=== PATIENT | male | born 1955 | race African-American/Black ===

== ENCOUNTER 2019-05-29 18:30 | Emergency (ER) | payer MEDICARE ==
[~2019-05-29] VITALS: Ht 177.8 cm; Wt 117.9 kg
[2019-05-29] MEDS ORDERED: TETANUS-DIPTH-ACEL PERTUSSIS 0.5ML SYRG IM ONE (20:15)
[2019-05-29] MEDS ORDERED: LIDOCAINE 1% HCL (LOCAL ANESTH.) INJ 20ML MDV IJ ONE (20:15)
[2019-05-29 20:40] VITALS: BP 144/88
== END 2019-05-29 21:22 | disposition home or self-care (01) ==
LOC: ER 18:30
DX: S61.412A Laceration without foreign body of left hand, initial encounter (principal); W54.0XXA Bitten by dog, initial encounter; Y93.89 Activity, other specified; Y92.89 Other specified places as the place of occurrence of the external cause; Y99.8 Other external cause status
CPT/HCPCS: 12001; 90471; 90715; 99283; J2001

== ENCOUNTER 2023-04-02 11:35 | Emergency (ER) | payer OTHER, MEDICAID ==
[~2023-04-02] VITALS: Ht 177.8 cm; Wt 118.2 kg
[2023-04-02 12:55] LABS: Basophils # (auto) 0.1 10 ^3/uL (0-0.2); Basophils % (auto) 1.3 % (0.0-2.0); Eosinophils # (auto) 0.1 10 ^3/uL (0-0.8); Eosinophils % (auto) 1.7 % (0.0-7.0); Hematocrit 40.5 % (41.0-53.0); Lymphocytes # (auto) 1.9 10 ^3/uL (0.4-5.4); Lymphocytes % (auto) 26.6 % (10.0-50.0); Mean Corpuscular Hemoglobin 27.4 pg (28.0-32.0); Mean Corpuscular Volume 85.4 fL (80.0-100.0); Monocytes # (auto) 0.4 10 ^3/uL (0-1.3); Monocytes % (auto) 5.8 % (0.0-12.0); Neutrophils # (auto) 4.7 10 ^3/uL (1.6-8.6); Neutrophils % (auto) 64.6 % (37.0-80.0); Nucleated Red Blood Cells % 0.2 %; Red Blood Cells 4.74 10^6/uL (4.5-5.90); Red Cell Distribution Width 13.2 % (11.8-14.3); White Blood Cell 7.3 10^3/uL (4.4-10.8)
[2023-04-02 13:14] LABS: Alanine Aminotransferase 27 U/L (7-40); Albumin 4.3 g/dL (3.2-4.8); Alkaline Phosphatase 71 U/L (46-116); Aspartate Aminotransferase 25 U/L (13-40); BUN/Creatinine Ratio 12.7 (10.0-20.0); Blood Urea Nitrogen 19 mg/dL (9-23); Chloride 104 mmol/L (98-107); Glucose 166 mg/dL (74-106); Potassium 4.1 mmol/L (3.5-5.1); Sodium 135 mmol/L (136-145)
[2023-04-02 13:15] LABS: Bilirubin, Total 0.3 mg/dL (0.2-1.0)
[2023-04-02] MEDS ORDERED: CLIN300C70 PO (14:29)
[2023-04-02] MEDS ORDERED: AMOX500T3 PO (14:29)
[2023-04-02 16:58] VITALS: BP 149/85; PULSE 68; RESP 18; TEMP 98.4; O2SAT 95
== END 2023-04-02 17:00 | disposition home or self-care (01) ==
LOC: ER 11:35
DX: L03.115 Cellulitis of right lower limb (principal); I10 Essential (primary) hypertension; E11.65 Type 2 diabetes mellitus with hyperglycemia; Z79.2 Long term (current) use of antibiotics
CPT/HCPCS: 36415; 80053; 84484; 85025; 93971

== ENCOUNTER 2025-07-02 12:53 | Emergency (ER) | payer OTHER, MEDICAID ==
[~2025-07-02] VITALS: Ht 177.8 cm; Wt 110.9 kg
[~2025-07-02 12:53] MED LIST: AMOX500T3 PO; CLIN1CAP70 PO
[2025-07-02 13:43] VITALS: TEMP 99.2
[2025-07-02 15:09] LABS: Hematocrit 42.1 % (41.0-53.0); Hemoglobin 13.6 g/dL (13.5-17.5); Mean Corpuscular Hemoglobin 27.0 pg (28.0-32.0); Mean Corpuscular Volume 83.7 fL (80.0-100.0); Nucleated Red Blood Cells % 0.0 %
--- NOTE | 2025-07-02 15:10 | ED.PDOC ---
Timothy. trauma (HPI) HPI Comments 69 y/o M, presents to the ED for CC of s/p fall injury. Patient states, he fell off a 12ft ladder landing on his buttocks x4days ago and accidently injured his right ankle. Patient has notable swelling to the right ankle and reports being unable to bear weight onto his right extremity. Patient denies loss of conscio usness, head injury, numbness, or tingling. No other symptoms or modifying factors are present at this time. Chief Complaint: Fall Injury Time Seen by MD: 15:00 Primary Care Provider: GABY Gomez notes: Nurses Notes, Medications, Allergies Allergies: Coded Allergies: NO KNOWN ALLERGIES (Unverified , 07/02/25) Home Meds Active Scripts Amoxicillin Trihydrate (Amoxicillin) 500 Mg Tab, 1 TAB PO TID for 7 Days, #21 TAB Prov:ANGELICA GUTIERREZ MD 04/02/23 Clindamycin Hcl (Clindamycin Hcl) 300 Mg Cap, 1 CAP PO TID for 7 Days, #21 CAP Prov:ANGELICA GUTIERREZ MD 04/02/23 Information Source: Patient Mode of Arrival: Wheelchair Severity: Moderate Timing: Days Duration: Since onset Prehospital treatment: None Location: (R) Ankle Location of laceration: None Mechanism: Fall Associated signs and symtoms: None Past Medical History PAST MEDICAL HISTORY: DM, HTN, Denies Surgical History: Denies all surgeries Family History Family History: Reviewed,noncontributory to illness, No family hx of Cancer, No family hx of DM, No family hx of Heart neli, No family hx of HTN, No family hx ofKidney neli, No family hx of Liver neli, No family hx of Lung neli, No family hx of Stroke Social History Smoker: Non-Smoker Alcohol: Denies ETOH Use Drugs: Denies Drug Use Lives In: Home Constitutional: denies: chills, diaphoresis, fatigue, fever, malaise, sweats, weakness, others EENTM: denies: blurred vision, double vision, ear bleeding, ear discharge, ear drainage, ear pain, ear ringing, eye pain, eye redness, hearing loss, mouth pain, mouth swelling, nasal discharge, nose bleeding, nose congestion, nose pain, photophobia, tearing, throat pain, throat swelling, voice changes, others Respiratory: denies: cough, hemoptysis, orthopnea, SOB at rest, shortness of breath, SOB with excertion, stridor, wheezing, others Cardiovascular: denies: chest pain, dizzy spells, diaphoresis, Dyspnea on exertion, edema, irregular heart beat, left arm pain, lightheadedness, palpitations, PND, syncope, others Gastrointestinal: denies: abdomen distended, abdominal pain, blood streaked bowels, constipated, diarrhea, dysphagia, difficulty swallowing, hematemesis, melena, nausea, poor appetite, poor fluid intake, rectal bleeding, rectal pain, vomiting, others Genitourinary: denies: burning, dysuria, flank pain, frequency, hematuria, incontinence, penile discharge, penile sore, pain, testicle pain, testicle swelling, urgency, others Neurological: denies: dizziness, fainting, headache, left sided numbness, left sided weakness, numbness, paresthesia, pre-existing deficit, right sided numbness, right sided weakness, seizure, speech problems, tingling, tremors, weakness, others Musculoskeletal: reports: others (right ankle swelling); denies: back pain, gout, joint pain, joint swelling, muscle pain, muscle stiffness, neck pain Integumetry: denies: bruises, change in color, change in hair/nails, dryness, laceration, lesions, lumps, rash, wounds, others Allergic/Immunocompromised: denies: Difficulty Healing, Frequent Infections, Hives, Itching, others Hematologic/Lymphatic: denies: anemia, blood clots, easy bleeding, easy bruising, swollen glands, others Endocrine: denies: excessive hunger, excessive sweating, excessive thirst, excessive urination, flushing, intolerance to cold, intolerance to heat, unexplained weight gain, unexplained weight loss, others Psychiatric: denies: anxiety, bipolar disorder, depression, hopeless, panic disorder, schizophrenia, sleepless, suicidal, others All Other Systems: Reviewed and Negative Physical Exam General Appearance: No Apparent Distress, Normal HEENT: Normal ENT Inspection, Pharynx Normal Neck: Full Range of Motion, Non-Tender, Normal, Normal Inspection Respiratory: Chest Non-Tender, Lungs Clear, No Accessory Muscle Use, No Respiratory Distress, Normal Breath Sounds Cardiovascular: No Edema, No Murmur, No Gallop, Normal Peripheral Pulses, Regular Rate/Rhythm Breast Exam: Deferred Gastrointestinal: No Organomegaly, Non Tender, No Pulsatile Mass, Normal Bowel Sounds, Soft Genitalia: Deferred Pelvic: Deferred Rectal: Deferred Extremities: No calf tenderness, Normal capillary refill, Normal inspection, Normal range of motion, Non-tender, No pedal edema Musculoskeletal : Location: Right Extremity Location: Ankle Apperance: Swelling Neurologic: Alert, peoplesoft crm developer II-XII nml as Tested, No Motor Deficits, Normal Affect, Normal Mood, No Sensory Deficits Cerebellar Function: Normal Reflexes: Normal Skin: Dry, Normal Color, Warm Lymphatic: No Adenopathy Was a procedure done? Was a procedure done?: No Differential Diagnosis Multiple Trauma: Fractures, Other (sprain, dislocation) X-Ray, Labs, Meds, VS Vital Signs Date Time Temp Pulse Resp B/P (MAP) Pulse Ox O2 Delivery O2 Flow Rate FiO2 07/02/25 17:31 100 18 133/75 (94) 97 07/02/25 13:43 99.2 100 18 127/89 (102) 95 99.2 07/02/25 12:55 98.0 60 18 140/77 96 98.0 Lab Test 07/02/25 14:50 Range/Units White Blood Count 7.5 4.4-10.8 10^3/uL Red Blood Count 5.03 4.5-5.90 10^6/uL Hemoglobin 13.6 13.5-17.5 g/dL Hematocrit 42.1 41.0-53.0 % Mean Corpuscular Volume 83.7 80.0-100.0 fL Mean Corpuscular Hemoglobin 27.0 L 28.0-32.0 pg Mean Corpuscular Hemoglobin Concent 32.3 32.0-36.0 g/dL Red Cell Distribution Width 14.8 H 11.8-14.3 % Platelet Count 235 140-450 10^3/uL Mean Platelet Volume 7.8 6.9-10.8 fL Neutrophils (%) (Auto) 66.9 37.0-80.0 % Lymphocytes (%) (Auto) 18.7 10.0-50.0 % Monocytes (%) (Auto) 12.2 H 0.0-12.0 % Eosinophils (%) (Auto) 1.2 0.0-7.0 % Basophils (%) (Auto) 1.0 0.0-2.0 % Neutrophils # (Auto) 5.0 1.6-8.6 10 ^3/uL Lymphocytes # (Auto) 1.4 0.4-5.4 10 ^3/uL Monocytes # (Auto) 0.9 0-1.3 10 ^3/uL Eosinophils # (Auto) 0.1 0-0.8 10 ^3/uL Basophils # (Auto) 0.1 0-0.2 10 ^3/uL Nucleated Red Blood Cells 0.0 % D-Dimer, Quantitative 2.19 H 0.0-0.49 mg/L FEU Sodium Level 139 136-145 mmol/L Potassium Level 4.1 3.5-5.1 mmol/L Chloride Level 99 98-107 mmol/L Carbon Dioxide Level 30 20-31 mmol/L Anion Gap 10 5-15 Blood Urea Nitrogen 21 9-23 mg/dL Creatinine 1.70 H 0.700-1.30 mg/dL Glomerular Filtration Rate Calc 43 >90 mL/min BUN/Creatinine Ratio 12.4 10.0-20.0 Serum Glucose 95 74-106 mg/dL Calcium Level 9.3 8.7-10.4 mg/dL Time of 1ST Reevaluation: 15:30 Reevaluation 1ST: Unchanged Patient Education/Counseling: Diagnosis, Treatment Family Education/Counseling: No Family Present Departure 1 Departure Time of Disposition: 17:44 (Patient likely with a sprained right ankle. Ultrasound was negative for a DVT. Ultrasound did show simple cyst. X-rays were negative for fracture. We will discharge patient with outpatient orthopedic follow up.) Impression: Primary Impression: Right ankle sprain Additional Impressions: Effusion, right knee Fall Disposition: 01 HOME / SELF CARE / HOMELESS Condition: Stable Referrals: DOLORES GUIDRY MD Additional Instructions: You likely sprained your right ankle. A sprain can hurt just as bad as a break but usually heals much faster. Your x-rays were benign. Your ultrasound shows a small cyst behind her knee. These usually resolve on their own. You were referred to orthopedics to ensure this heals well. Please call for an appointment For pain you can take the followinam: Ibuprofen 400mg with food Noon: Acetaminophen 1000mg 4pm: Ibuprofen 400mg with food 8pm: Acetaminophen 1000mg You should follow up with your regular doctor within one week to ensure you are doing better. If your symptoms worsen or you have any other concerns then please return to the ER. Discharged With: Self Critical Care Note Critical Care Time?: No Stability Stability form required: No Heart Score Heart Score: Heart Score Response (Comments) Value History N/A 0 EKG N/A 0 Age N/A 0 Risk Factors N/A 0 Troponin N/A 0 Total 0 I personally scribed for CHAN GODWIN MD ([email or web address]) on 07/02/25 at 15:10. Electronically submitted by Clotilde Cheung ([email or web address]). CHAN GODWIN MD Jul 02, 2025 15:10
[2025-07-02 15:13] LABS: Chloride 99 mmol/L (98-107); Potassium 4.1 mmol/L (3.5-5.1); Sodium 139 mmol/L (136-145)
[2025-07-02 15:14] LABS: Anion Gap 10 (5-15); Carbon Dioxide 30 mmol/L (20-31)
[2025-07-02 15:15] LABS: Calcium 9.3 mg/dL (8.7-10.4)
[2025-07-02 15:19] LABS: Glucose 95 mg/dL (74-106)
[2025-07-02 15:20] LABS: BUN/Creatinine Ratio 12.4 (10.0-20.0); Blood Urea Nitrogen 21 mg/dL (9-23)
--- NOTE | 2025-07-02 15:25 | DVH ---
CLINICAL INFORMATION: Right leg pain. TECHNIQUE: 2 views of the right lower leg were obtained. COMPARISON: None FINDINGS: No acute fracture or dislocation. Partially visualized moderate arthritic changes at the right knee. Small chronic ossicle adjacent to the tibial tuberosity, may be sequelae of patellar tendinopathy. No significant soft tissue abnormality identified. IMPRESSION: 1. No acute bony abnormality. 2. Nonacute findings as described above.
--- NOTE | 2025-07-02 16:02 | DVH ---
Right lower extremity venous duplex Clinical History: right leg swelling Comparison: US RT LOWER DVT on DOS: 04/02/23 Technique: Duplex Doppler evaluation of the deep venous system of the right lower extremity from the common femoral vein to the popliteal vein including color Doppler and spectral/pulsed waveform analysis was performed. Findings: The common femoral vein demonstrates appropriate compressibility and waveform variability. There is compressibility/patency of the great saphenous vein at the proximal thigh. The femoral vein demonstrates appropriate compressibility and waveform variability. The deep femoral vein demonstrates appropriate compressibility and waveform variability. The popliteal vein demonstrates appropriate compressibility and waveform variability. There is normal compressibility at the tibioperoneal trunk. Impression: No right femoropopliteal venous thrombosis. Right popliteal fossa cyst measures 3.0 x 3.4 cm.
[2025-07-02 17:31] VITALS: BP 133/75; PULSE 100; RESP 18; O2SAT 97
[2025-07-02] MEDS: HYDROcodone-ACET 5/325MG TAB PO ONE (18:05)
== END 2025-07-02 18:18 | disposition home or self-care (01) ==
LOC: ER 12:53
DX: S93.401A Sprain of unspecified ligament of right ankle, initial encounter (principal); M25.461 Effusion, right knee; W19.XXXA Unspecified fall, initial encounter; Y93.89 Activity, other specified; Y92.89 Other specified places as the place of occurrence of the external cause; Y99.8 Other external cause status
CPT/HCPCS: 36415; 73590; 80048; 85025; 85379; 93971; 99284; Q0161